=== PATIENT | female | born 1975 | race Caucasian/White ===

== ENCOUNTER 2016-08-05 23:31 | Emergency (ER) | payer OTHER ==
[~2016-08-05] VITALS: Ht 167.6 cm; Wt 96.6 kg
[2016-08-05] MEDS ORDERED: CYMBALTA30 MG PO (23:52)
[2016-08-05] MEDS ORDERED: ALBUTEROL2.5 MG/NEB INH (23:53)
[2016-08-05] MEDS ORDERED: ADVAIR 250/5028 PUFF IN (23:54)
[2016-08-05] MEDS ORDERED: ACCUNEB SOL3 ML/NEB INH (23:54)
[2016-08-05] MEDS ORDERED: SINGULAIR10 MG PO (23:55)
[2016-08-05] MEDS ORDERED: CLARITIN 10MG T10 MG PO (23:56)
[2016-08-06 00:26] LABS: HEMOGLOBIN 14.4 g/dL (12.2-16.2); LYMPH # 1.9 K/mm3 (0.7-4.5); LYMPH % 24.6 % (10-50.0)
[2016-08-06 00:42] LABS: FREE THYROXIN INDEX 6.8 ug/dl (5.93-13.13)
[2016-08-06 00:50] LABS: URINE BILIRUBIN - DIPSTICK NEGATIVE (NEG); URINE BLOOD NEGATIVE (NEG)
[2016-08-06 01:00] LABS: AMPHETAMINES/METAMPHETAMINES NEGATIVE ng/mL (<1000)
--- NOTE | 2016-08-06 01:15 | Emergency Room Report ---
History of Present Illness Time Seen by [id number] Presenting Problem in Triage Pt arrived:Walked Presenting Problem:PT BROUGHT IN TO ER BY [facility] POLICE FOR THOUGHTS OF SELF HARM. PT REPORTS THAT SHE IS BIPOLAR AND HAS BEEN SINCE SHE WAS 14 YEARS OLD. PT REPORTS THAT SHE BELIEVES SHE IS FINE BUT HER WAS CONCERNED. 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 N Clinical Suspician of Infection? N Mental Status: 1 - Regular (Normal Baseline) Sepsis Risk:Low Sepsis Risk Have you (or family members/close friends) recently traveled outside the [place]? N If Yes, where/when: Have you had exposure to infectious disease within the past month? N TB? Other? Specify: Source patient, RN notes reviewed, RN/MD Exam Limitations no limitations Comment This is a 41-year-old feel patient brought into the emergency room under police escort after called local police advising that his has made suicidal statements, after drinking a couple of glasses of wine. Patient has a history of depression, with previous suicidal attempts in the past. She is currently under the care of a psychiatrist, and she is being prescribed antidepressants. Patient denies any specific suicidal plan at this time, any hallucinations or delusions. She also denies any specific triggering factors of her alleged suicidal ideation. When asked if she has made some suicidal statements the patient's advises "I do not remember". ALLERGIES Coded Allergies: No Known Allergies (08/05/16) Home Medications Reported Medications DULOXETINE HCL (Cymbalta 30MG) 30 MG PO DAILY ALBUTEROL (Albuterol 0.083% Neb) 2.5 MG INH PRN PRN ASTHMA ALBUTEROL SULFATE (Accuneb) 1.25 MG INH PRN PRN ASTHMA FLUTICASONE/SALMETEROL (Advair 250-50 Diskus) 1 PUFF IN PRN PRN ASTHMA Montelukast Sodium (Singulair) 10 MG PO PRN PRN ALLERGIES Loratadine (Claritin 10MG) 10 MG PO PRN PRN ALLERGIES History Medical History General CAD? No Angina: No NV: No Hypertension? No Hyperlipidemia? No CHF? No DVT? No PE? No COPD? No Asthma? Yes Anemia? No GERD? No Gastric ulcers? No GI Bleed? No Hernia? No Thyroid Problems? No Hypothyroidism? No CVA? No Seizures? No Diabetes? No Renal Insuffiency? No End Stage Renal Disease? No UTI? No Stones? No BPH? No GB Disease: Yes Nephritic Syndrome? No Asplenia? No Hepatitis? No Sickle Cell Disease? No Arthritis? No Migraines? Yes Cataracts? No Anxiety? Yes Depression? Yes More? 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 Ago Social History Smoking Hx Smoker: Never Smoker Tobacco: No Alcohol Alcohol: Yes Review of Systems All Other Systems Reviewed and Negative Psychiatric/Neurological anxiety, depressed, other (suicidal ideation) Physical Exam Vital Signs Vital Signs Date Time Temp Pulse Resp B/P Pulse O2 O2 Flow FiO2 Ox Delivery Rate 08/06 0539 98 20 128/80 99 08/06 0501 78 20 99 08/06 0431 60 20 98 08/06 0357 60 20 98 08/06 0321 60 20 98 08/06 0251 113 20 117/78 95 08/06 0217 112 24 130/71 98 08/06 0146 97.6 107 16 135/56 96 08/06 0046 98 16 119/88 96 08/06 0013 89 18 140/79 96 08/05 2343 97.6 114 18 131/69 97 General Appearance normal appearance, WD/WN, no apparent distress, alcohol odor in pt's breath Neck normal inspection, non-tender, supple, full range of motion Respiratory Status Yes: trachea midline, chest symmetrical, non tender chest. No: respiratory distress. Lung Sounds bilateral: normal breath sounds, lungs clear. Cardiovascular normal exam, regular rate/rhythm, no peripheral edema, no gallop, no JVD, no murmur, no rub, normal peripheral pulses Gastrointestinal normal bowel sounds, normal exam, non tender, soft, no organomegaly Extremities non-tender, normal range of motion, normal inspection Neurologic alert, resident care supervisor II-XII nml as tested, normal exam, oriented x 3 Mental status depressed affect, suicidal Skin intact, normal color, warm/dry Medical Decision Making LABS/Meds/Orders Pt receiving controlled substance in ED? No Comment Upon reevaluation patient appears medically stable, also the ETOH level is significantly improved (down to 103). Repeat ETOH level, obtained 2 hours later is 53. The patient is medically cleared for psychiatric evaluation and transfer to [facility]. Results/Orders Laboratory Tests 08/06/16 0504: Alcohols 51 08/06/16 0317: Alcohols 103 H 08/06/16 0042: Opiates Screen NEGATIVE, Urine Methadone Screen NEGATIVE, Barbiturates NEGATIVE, Phencyclidine Screen NEGATIVE, Amphetamines Screen NEGATIVE, Benzodiazepines Screen NEGATIVE, Cocaine Screen NEGATIVE, Marijuana (THC) Screen NEGATIVE, Urine Color YELLOW, Urine Appearance CLEAR, Urine pH 6.0, Ur Specific Vanderbilt 1.020, Urine Protein NEGATIVE, Urine Ketones NEGATIVE, Urine Blood NEGATIVE, Urine Nitrate NEGATIVE, Urine Bilirubin NEGATIVE, Urine Urobilinogen 1.0, Ur Leukocyte Esterase NEGATIVE, Urine WBC 3-5, Ur Squamous Epith Cells 3-5, Amorphous Sediment TRACE, Urine Glucose NEGATIVE 08/06/16 0008: TSH 2.80, Free T4 Index 6.8, Thyroxine (T4) 8.6, T3 Uptake 32 08/06/16 0008: Sodium 142, Potassium 3.9, Chloride 103, Carbon Dioxide 25, BUN 8, Creatinine 0.6, Estimated Creat Clear 190, Estimated GFR (MDRD) 111, Glucose 130 H, Calcium 8.8, Total Bilirubin 0.3, AST 25, ALT 33, Alkaline Phosphatase 87, Total Protein 8.8 H, Albumin 4.2, Globulin 4.6 H, Albumin/Globulin Ratio 0.9 L, WBC 7.8, RBC 4.82, Hgb 14.4, Hct 39.7, MCV 82.4, RDW 15.0, Plt Count 354, MPV 5.9 L , Gran % 70.9, Gran # 5.6, Lymphocytes % 24.6, Monocytes % 3.4, Eosinophils % 0.9, Basophils % 0.2, Lymphocytes # 1.9, Monocytes # 0.3, Eosinophils # 0.1, Basophils # 0.0, PUBS MCHC 36.3 H, MCH 29.9, Salicylates 1.0 L, Acetaminophen 0 L, Alcohols 185 H Current Medication Orders Sig/Vielka Start time Last Medication Dose Route Stop Time Status Admin Ibuprofen 800 MG ONCE ONE 08/06 244 DC 08/06 PO 02/20 0246 0236 Ibuprofen 0 .STK-MED ONE 08/06 0236 DC PO Diphenhydramine HCl 12.5 MG ONCE ONE 08/06 0030 CAN IV 08/06 0031 Orders Procedure Date/time Status ALCOHOL 08/06 0500 Complete ALCOHOL 08/06 0300 Complete RESP THERAPY REQUEST (GENERAL) 08/06 0027 Active VITAL SIGNS 08/05 2345 Active URINALYSIS/COMPLETE 08/05 2345 Complete THYROID PANEL 2 (WITH TSH) 08/05 2345 Complete SALICYLATE 08/05 2345 Complete URINE 08/05 2345 Complete DRUG ABUSE SCREEN (TRIAGE) 08/05 2345 Complete COMPLETE METABOLIC PANEL 08/05 2345 Complete CBC WITH AUTO DIFF 08/05 2345 Complete ALCOHOL 08/05 234 Complete Acetaminophen 08/05 2345 Complete Departure Departure Time of Disposition 0400 Disposition DC Home or Self Care(routine) Clinical Impression Primary Impression: Alcohol intoxication Qualifiers: Complication of substance-induced condition: with unspecified complication Qualified Code: F10.129 - Alcohol abuse with intoxication, unspecified Secondary Impressions: Major depression Qualifiers: Major depression recurrence: single episode Active/Remission status : remission status unspecified Qualified Code: F32.9 - Major depressive disorder , single episode, unspecified Suicidal ideation Condition STABLE Referrals DUNIA PINTO (Family) Patient Instructions Depression, DI for Alcohol Abuse, Suicidal Ideation-Adult Additional Instructions You are medically cleared to be transferred to [facility] for psychiatric evaluation, under police escort. Discharge Counseling Counseled pt/family regarding diagnosis, test results, medications/RX, home care, follow up needs Comment You are medically cleared to be transferred to [facility] for psychiatric evaluation, under police escort. ED [place] [phone]
[2016-08-06 05:39] VITALS: BP 128/80
== END 2016-08-06 05:41 | disposition home or self-care (01) ==
LOC: ER 23:31
PROVIDERS: Emergency Medicine
DX: F10.129 Alcohol abuse with intoxication, unspecified (principal); F32.9 Major depressive disorder, single episode, unspecified; R45.851 Suicidal ideations; F41.8 Other specified anxiety disorders; M79.7 Fibromyalgia
CPT/HCPCS: G6040